=== PATIENT | male | born 2005 | race Caucasian/White ===

== ENCOUNTER 2025-08-27 20:55 | Emergency (ER) | payer OTHER, SELFPAY ==
[2025-08-27 21:01] VITALS: BP 158/100
--- NOTE | 2025-08-27 21:53 | ED.GENMED ---
History of Present Illness
General
Chief Complaint: Skin Surface Trauma
Source: patient
Time Seen by Provider: 08/27/25 21:27
History of Present Illness
History of Present Illness:
20-year-old male presenting to the ER for evaluation after accidentally sustaining laceration to the right index finger with a kitchen knife 1 hour prior to arrival. No other injuries were sustained. Tetanus is up-to-date. Patient is right-hand
dominant.
Past History
Past History
ED Past Medical History: Psychiatric
ED Past Surgical History: None
Social History
Tobacco: Non-smoker
Alcohol: None
Drug: None
Personal: Partner
Living: with family
Review of Systems
Review of Systems
All Other Systems: ROS reviewed and negative except as documented in HPI and ROS
Phy Exam
Physical Exam
Physical Exam:
GENERAL: Alert , in no apparent distress
EYE: conjunctiva clear
Head: Normocephalic atraumatic
NECK: Supple,
ENT: mmm.
LUNGS: no acute respiratory distress
NEUROLOGICAL: Alert and oriented
SKIN: Warm and dry, superficial 1 cm laceration at the level of the middle phalanx right index finger. Mild oozing but no arterial spurting.
MUSCULOSKELETAL: well perfused. Patient has full range of motion of the index finger at the FDP and FDS. Sensation grossly intact to light touch
PSYCH: Normal and appropriate interaction.
Scores
Heart Failure Risk
Heart Failure Risk Score: Not Applicable
Heart Score for Chest Pain Patients
STEMI patient?: Not applicable
Withdrawal Assessment of Alcohol
Withdrawal Assessment Completed?: Not applicable
Course
Vital Signs
Initial and Last Documented VS:
Initial Vital Signs
Temp Pulse Resp BP Pulse Ox
98.0 F 107 20 158/100 98
08/27/25 21:01 08/27/25 21:01 08/27/25 21:01 08/27/25 21:01 08/27/25 21:01
Last Documented Vital Signs
Temp Pulse Resp BP Pulse Ox
98.0 F 107 20 158/100 98
08/27/25 21:01 08/27/25 21:01 08/27/25 21:01 08/27/25 21:01 08/27/25 21:53
Procedures
Laceration Closure
Right Second Finger:
Status of Wound: clean
Size of Wound in cm: 1
Description of Wound Edges: sharp
Preparation: cleaned with saline
Anesthesia: Digital-Regional
Revision/Debridement: routine- no revision
Type of Closure: single layer closure
Skin Closure Material: 5-0 nylon
Number of sutures: 4
MDM/Problems Addressed
Differential Diagnosis Includes:
Superficial laceration
No concern for tendon or nerve involvement
No concern for fracture
MDM/Problems Addressed:
20-year-old male presenting to the ER for evaluation of laceration to the right index finger. Laceration repaired as above without difficulty. Wound care discussed. Suture removal 10 to 12 days. Patient aware of return precautions to the ER.
*Pulse Oximetry
SaO2: 98
Oxygen Mode of Delivery: Room air
Patient hypoxic: no
*Critical Care Note
Total Time (30-74mins, 75-104mins- exclusive of procedures): Not Applicable
ED Attending Note
-
Portions of this chart may have been created with voice recognition software.� Occasional wrong word or��sound alike� substitutions may have occurred due to the inherent limitations of voice recognition software.
Discharge Plan
Departure
Patient Disposition: Home (Routine Discharge)
Date of Disposition: 08/27/25
Time of Disposition: 21:53
Patient with high blood pressure during this ER visit?: Yes
Discharge Problem:
Laceration of right index finger
Instructions: Laceration Repair With Stitches (DC)
Prescriptions:
No Action
Melatonin
5 mg PO HS
Mydayis ER 50 mg Capsule
50 mg PO DAILY
Sertraline HCl
75 mg PO HS
Activity Restrictions/Additional Instructions:
Suture removal in 10 days
Interventions
Interventions:
*General Assessment Last Done: 08/27/25 21:01
Discharge Date and Time
Print Language: BOLIVIAN
== END 2025-08-27 22:42 | disposition home or self-care (01) ==
LOC: EMR 20:55
PROVIDERS: EMERGENCY PHYSICIAN Emergency Medicine
DX: S61.210A Laceration without foreign body of right index finger without damage to nail, initial encounter (principal); W26.0XXA Contact with knife, initial encounter; R03.0 Elevated blood-pressure reading, without diagnosis of hypertension
CPT/HCPCS: 99282; 12001